=== PATIENT | male | born 2005 | race Two or more races ===

== ENCOUNTER 2025-06-03 17:11 | Emergency (ER) | payer OTHER ==
[~2025-06-03] VITALS: Ht 172.7 cm; Wt 77.3 kg
[2025-06-03 17:54] VITALS: BP 135/81; PULSE 80; RESP 16; TEMP 98.1; O2SAT 99
--- NOTE | 2025-06-03 18:41 | ED.PDOC ---
HPI Comments Patient presents to the ED for evaluation of his left ring finger. Patient has an avulsion injury to the left ring finger and knuckles. The patient reports that the injury occurred while peeling a potatoe. Bleeding has been controlled, and there are no other signs or symptoms of distress noted at this time. Chief Complaint: Laceration Time Seen by MD: 18:37 Reviewed Notes: Nurses Notes, Medications, Allergies Information Source: Patient Mode of Arrival: Ambulatory Complexity: Complex Laceration Length (cm): 3 Skin Type: Avulsion Past Medical History PAST MEDICAL HISTORY: Denies Surgical History: Denies all surgeries Family History Family History: Reviewed,noncontributory to illness Constitutional: denies: chills, diaphoresis, fatigue, fever, malaise, sweats, weakness, others EENTM: denies: blurred vision, double vision, ear bleeding, ear discharge, ear drainage, ear pain, ear ringing, eye pain, eye redness, hearing loss, mouth pain, mouth swelling, nasal discharge, nose bleeding, nose congestion, nose pain, photophobia, tearing, throat pain, throat swelling, voice changes, others Respiratory: denies: cough, hemoptysis, orthopnea, SOB at rest, shortness of breath, SOB with excertion, stridor, wheezing, others Cardiovascular: denies: chest pain, dizzy spells, diaphoresis, Dyspnea on exertion, edema, irregular heart beat, left arm pain, lightheadedness, palpitations, PND, syncope, others Gastrointestinal: denies: abdomen distended, abdominal pain, blood streaked bowels, constipated, diarrhea, dysphagia, difficulty swallowing, hematemesis, melena, nausea, poor appetite, poor fluid intake, rectal bleeding, rectal pain, vomiting, others Genitourinary: denies: burning, dysuria, flank pain, frequency, hematuria, incontinence, penile discharge, penile sore, pain, testicle pain, testicle swelling, urgency, others Neurological: denies: dizziness, fainting, headache, left sided numbness, left sided weakness, numbness, paresthesia, pre-existing deficit, right sided numbness, right sided weakness, seizure, speech problems, tingling, tremors, weakness, others Musculoskeletal: denies: back pain, gout, joint pain, joint swelling, muscle pain, muscle stiffness, neck pain, others Integumetry: reports: laceration (left ring finger); denies: bruises, change in color, change in hair/nails, dryness, lesions, lumps, rash, wounds, others Allergic/Immunocompromised: denies: Difficulty Healing, Frequent Infections, Hives, Itching, others Hematologic/Lymphatic: denies: anemia, blood clots, easy bleeding, easy bruising, swollen glands, others Endocrine: denies: excessive hunger, excessive sweating, excessive thirst, excessive urination, flushing, intolerance to cold, intolerance to heat, unexplained weight gain, unexplained weight loss, others Psychiatric: denies: anxiety, bipolar disorder, depression, hopeless, panic disorder, schizophrenia, sleepless, suicidal, others Physical Exam General Appearance: No Apparent Distress, Normal HEENT: Pharynx Normal Neck: Full Range of Motion, Non-Tender Respiratory: Lungs Clear, No Respiratory Distress, Normal Breath Sounds Cardiovascular: No Murmur, Normal Peripheral Pulses, Regular Rate/Rhythm Breast Exam: Deferred Gastrointestinal: Non Tender, Soft Genitalia: Deferred Pelvic: Deferred Rectal: Deferred Extremities: Normal capillary refill, Normal range of motion Musculoskeletal : Apperance: Normal Neurologic: Alert, No Motor Deficits, Normal Affect, Normal Mood, No Sensory Deficits Cerebellar Function: Normal Reflexes: Normal Skin: Dry, Lacerations (3 cm avulsion laceration over knuckle with missing a good portion of skin. Bleeding controlled), Normal Color, Warm Lymphatic: No Adenopathy Was a procedure done? Was a procedure done?: Yes Sedation Sedation?: No Informed consent obtained: Yes Laceration Repair : Location left ring finger Length 3 Anesthetic: Lidocaine, Digital nerve block Laceration Repair Prep: Saline, by Irrigation Laceration Repair Wound Comple: epidermis/dermis repair Laceration Repair: Number of sutures (7) Informed consent obtained: Yes Risks, benefits, and alternati: Yes Notes Patient tolerated well minimal blood loss CSM intact Differential diagnosis Generic Laceration: Hematoma, Retained Foriegn Body, Neurovascular Injury, Tendon Injury, Avulsion X-Ray, Labs, Meds, VS Vital Signs Date Time Temp Pulse Resp B/P (MAP) Pulse Ox O2 Delivery O2 Flow Rate FiO2 06/03/25 17:54 98.1 80 16 135/81 (99) 99 98.1 X-Ray, Labs, Meds, VS Comment . See procedure note follow up with your PCP in 2-3 days for re-evaluation. Script prophylactic antibiotics. Take medication as prescribed side effects discussed. ER return precautions given patient indicates understanding agrees Time of 1ST Reevaluation: 18:41 Reevaluation 1ST: Unchanged Time of 2ND Reevaluation: 19:39 Reevaluation 2ND: Improved Patient Education/Counseling: Diagnosis, Treatment, Prognosis, Need For Follow Up Family Education/Counseling: Diagnosis, Treatment, Prognosis, Need For Follow Up Departure 1 Departure Time of Disposition: 19:39 Impression: Primary Impression: Avulsion of finger Qualified Codes: S61.209A - Unspecified open wound of unspecified finger without damage to nail, initial encounter Disposition: HOME / SELF CARE / HOMELESS Condition: Stable e-Prescriptions Amoxicillin & Pot Clavulanate (AUGMENTIN TABLET) 875 Mg Tb 875 MG PO BID for 7 Days, #14 TAB Prov: VIRGEN JACOBS 06/03/25 Discharged With: Relative (Father) Critical Care Note Critical Care Time?: No Stability Stability form required: No VIRGEN JACOBS Jun 03, 2025 18:41
[2025-06-03] MEDS ORDERED: AUG875T PO (19:41)
== END 2025-06-03 20:11 | disposition home or self-care (01) ==
LOC: ER 17:11
DX: S61.305A Unspecified open wound of left ring finger with damage to nail, initial encounter (principal); W26.9XXA Contact with unspecified sharp object(s), initial encounter; Y93.89 Activity, other specified; Y92.89 Other specified places as the place of occurrence of the external cause; Y99.8 Other external cause status
CPT/HCPCS: 12002

== ENCOUNTER 2025-06-10 02:27 | Emergency (ER) | payer OTHER ==
[~2025-06-10] VITALS: Ht 172.7 cm; Wt 72.7 kg
[~2025-06-10 02:27] MED LIST: AUG875T PO
[2025-06-10 02:40] VITALS: BP 116/74; PULSE 68; RESP 20; TEMP 98.6; O2SAT 98
--- NOTE | 2025-06-10 02:59 | ED.PDOC ---
History of Present Illness HPI Comments 19 year old male presents to the ED for the c/c of Right Sided Testicle pain w/ associated Cramping Sensation. Pt states that his pain started at approx 0100 this am with no alleviating factors at this time. Pt states that he felt a "mass" on his right testicle, and notes he was unable to find the same mass on his left testicle. Pt denies any ABD pain, N/V/D or Dysuria at this time. Time Seen by MD: 02:55 Reviewed Notes: Nurses Notes, Medications, Allergies Allergies: Coded Allergies: NO KNOWN ALLERGIES (Unverified , 06/10/25) Home Meds Active Scripts Amoxicillin & Pot Clavulanate (AUGMENTIN TABLET) 875 Mg Tb, 875 MG PO BID for 7 Days, #14 TAB Prov:VIRGEN JACOBS MICHAEL 06/03/25 Information Source: Patient Mode of Arrival: Ambulatory Severity: Moderate Timing: Hours Duration: Since onset, Hours Prehospital treatment: None Past Medical History PAST MEDICAL HISTORY: Denies Surgical History: Denies all surgeries Family History Family History: Reviewed,noncontributory to illness Social History Smoker: Non-Smoker Alcohol: Denies ETOH Use Drugs: Denies Drug Use Lives In: Home Constitutional: denies: chills, diaphoresis, fatigue, fever, malaise, sweats, weakness, others EENTM: denies: blurred vision, double vision, ear bleeding, ear discharge, ear drainage, ear pain, ear ringing, eye pain, eye redness, hearing loss, mouth pain, mouth swelling, nasal discharge, nose bleeding, nose congestion, nose pain, photophobia, tearing, throat pain, throat swelling, voice changes, others Respiratory: denies: cough, hemoptysis, orthopnea, SOB at rest, shortness of breath, SOB with excertion, stridor, wheezing, others Cardiovascular: denies: chest pain, dizzy spells, diaphoresis, Dyspnea on exertion, edema, irregular heart beat, left arm pain, lightheadedness, palpitations, PND, syncope, others Gastrointestinal: denies: abdomen distended, abdominal pain, blood streaked bowels, constipated, diarrhea, dysphagia, difficulty swallowing, hematemesis, melena, nausea, poor appetite, poor fluid intake, rectal bleeding, rectal pain, vomiting, others Genitourinary: reports: testicle pain; denies: burning, dysuria, flank pain, frequency, hematuria, incontinence, penile discharge, penile sore, pain, testicle swelling, urgency, others Neurological: denies: dizziness, fainting, headache, left sided numbness, left sided weakness, numbness, paresthesia, pre-existing deficit, right sided numbness, right sided weakness, seizure, speech problems, tingling, tremors, weakness, others Musculoskeletal: denies: back pain, gout, joint pain, joint swelling, muscle pain, muscle stiffness, neck pain, others Integumetry: denies: bruises, change in color, change in hair/nails, dryness, laceration, lesions, lumps, rash, wounds, others Hematologic/Lymphatic: denies: anemia, blood clots, easy bleeding, easy bruising, swollen glands, others Endocrine: denies: excessive hunger, excessive sweating, excessive thirst, excessive urination, flushing, intolerance to cold, intolerance to heat, unexplained weight gain, unexplained weight loss, others Psychiatric: denies: anxiety, bipolar disorder, depression, hopeless, panic disorder, schizophrenia, sleepless, suicidal, others All Other Systems: Reviewed and Negative Physical Exam General Appearance: Mild Distress, Normal HEENT: Normal ENT Inspection, Pharynx Normal, TMs Normal Neck: Full Range of Motion, Non-Tender, Normal, Normal Inspection Respiratory: Chest Non-Tender, Lungs Clear, No Accessory Muscle Use, No Respiratory Distress, Normal Breath Sounds Cardiovascular: No Edema, No JVD, No Murmur, No Gallop, Normal Peripheral Pulses, Regular Rate/Rhythm Breast Exam: Deferred Gastrointestinal: Non Tender, No Pulsatile Mass, Normal Bowel Sounds, Soft Genitalia: Testicle (Right Tenderness) Pelvic: Deferred Rectal: Deferred Extremities: No calf tenderness, Normal capillary refill, Normal inspection, Normal range of motion, Non-tender, No pedal edema Musculoskeletal : Apperance: Normal Neurologic: Alert, No Motor Deficits, Normal Affect, Normal Mood, No Sensory Deficits Cerebellar Function: Normal Reflexes: Normal Skin: Dry, Normal Color, Warm Lymphatic: No Adenopathy Was a procedure done? Was a procedure done?: No Differential Dx Considerations may include: Differential diagnosis includes but is not limited to: ureteral colic / stone, testicular torsion, epididymitis, pyelonephritis, acute renal failure, musculo skeletal etiology and others X-Ray, Labs, Meds, VS Vital Signs Date Time Temp Pulse Resp B/P (MAP) Pulse Ox O2 Delivery O2 Flow Rate FiO2 06/10/25 02:40 98.6 68 20 116/74 (88) 98 98.6 Lab Test 06/10/25 02:45 Range/Units White Blood Count 6.1 4.4-10.8 10^3/uL Red Blood Count 5.18 4.5-5.90 10^6/uL Hemoglobin 16.2 13.5-17.5 g/dL Hematocrit 46.4 41.0-53.0 % Mean Corpuscular Volume 89.5 80.0-100.0 fL Mean Corpuscular Hemoglobin 31.4 28.0-32.0 pg Mean Corpuscular Hemoglobin Concent 35.0 32.0-36.0 g/dL Red Cell Distribution Width 13.0 11.8-14.3 % Platelet Count 208 140-450 10^3/uL Mean Platelet Volume 8.9 6.9-10.8 fL Neutrophils (%) (Auto) 48.2 37.0-80.0 % Lymphocytes (%) (Auto) 41.9 10.0-50.0 % Monocytes (%) (Auto) 8.2 0.0-12.0 % Eosinophils (%) (Auto) 1.4 0.0-7.0 % Basophils (%) (Auto) 0.3 0.0-2.0 % Neutrophils # (Auto) 3.0 1.6-8.6 10 ^3/uL Lymphocytes # (Auto) 2.6 0.4-5.4 10 ^3/uL Monocytes # (Auto) 0.5 0-1.3 10 ^3/uL Eosinophils # (Auto) 0.1 0-0.8 10 ^3/uL Basophils # (Auto) 0 0-0.2 10 ^3/uL Nucleated Red Blood Cells 0.3 % Urine Color Light-yellow Yellow Urine Clarity Clear Clear Urine pH 5.5 5.0-9.0 Urine Specific [place] 1.022 1.001-1.035 Urine Protein Negative Negative Urine Ketones Negative Negative Urine Blood Negative Negative /uL Urine Nitrite Negative Negative Urine Bilirubin Negative Negative Urine Urobilinogen Normal Negative mg/dL Urine Leukocyte Esterase Negative Negative /uL Urine RBC None seen 0 - 3 /hpf Urine Microscopic WBC < 1 0-3 /HPF Urine Squamous Epithelial Cells None seen <5 /hpf Urine Bacteria Few H None Seen /hpf Urine Sperm Present None Seen /hpf Urine Glucose Normal Normal mg/dL Sodium Level 142 136-145 mmol/L Potassium Level 3.8 3.5-5.1 mmol/L Chloride Level 105 98-107 mmol/L Carbon Dioxide Level 28 20-31 mmol/L Anion Gap 9 5-15 Blood Urea Nitrogen 14 9-23 mg/dL Creatinine 0.93 0.700-1.30 mg/dL Glomerular Filtration Rate Calc 120 >90 mL/min BUN/Creatinine Ratio 15.1 10.0-20.0 Serum Glucose 80 74-106 mg/dL Calcium Level 9.1 8.7-10.4 mg/dL PATIENT: MATT WOOD ACCT: [id number] UNIT: [id number] : 2005 LOC: ER ROOM / BED: / AGE / SEX: 19 / M ADM STATUS: REG ER SERVICE 0231 ORDERING PHYSICIAN: GUZMAN ORTIZ MD PROCEDURE(s): TESUS - TESTICULAR ULTRASOUND REASON: testicle pain ORDER NUMBER(s): [id number], ACCESSION NUMBER(s): [id number] ULTRASOUND OF SCROTUM AND CONTENTS. INDICATION: testicle pain COMPARISON: None TECHNIQUE: Multiple real-time grayscale sonographic and color and duplex Doppler images of the scrotum and its contents were obtained. FINDINGS: The right testicle measures 4.1 x 3.1 x 2.4 cm. The left testicle measures 4.5 x 3.1 x 2.1 cm. Both testicles demonstrate homogeneous echotexture without evidence of focal lesions. The right epididymal head measures 11.4 mm. The left epididymal head measures 12.0 mm. Subsequent color and duplex Doppler interrogation of the testes demonstrated symmetric normal vascular flow to both testicles. No focal areas of hyperemia were seen. IMPRESSION: 1. No evidence of torsion, epididymitis, and/or orchitis. 2. Left hydrocele. Time of 1ST Reevaluation: 03:25 Reevaluation 1ST: Unchanged Patient Education/Counseling: Diagnosis, Treatment, Need For Follow Up Family Education/Counseling: No Family Present SEPSIS Sepsis Screen Physician Orders Testicular Ultrasound (06/10/25 02:31) Vital Signs Date Time Temp Pulse Resp B/P (MAP) Pulse Ox O2 Delivery O2 Flow Rate FiO2 06/10/25 02:40 98.6 68 20 116/74 (88) 98 98.6 Laboratory Tests Test 06/10/25 02:45 White Blood Count 6.1 10^3/uL (4.4-10.8) Departure 1 Departure Time of Disposition: 05:30 Impression: Primary Impression: Left hydrocele Additional Impression: Right testicular pain Disposition: HOME / SELF CARE / HOMELESS Condition: Stable Discharged With: Self Critical Care Note Critical Care Time?: No Stability Stability form required: No Heart Score Heart Score: Heart Score Response (Comments) Value History N/A 0 EKG N/A 0 Age N/A 0 Risk Factors N/A 0 Troponin N/A 0 Total 0 I personally scribed for GUZMAN ORTIZ MD ([email or web address]) on 06/10/25 at 02:59. Electronically submitted by Chriss Martin ([email or web address]). I personally scribed for GUZMAN ORTIZ MD ([email or web address]) on 06/10/25 at 04:26. Electronically submitted by Chriss Martin ([email or web address]). GUZMAN ORTIZ MD Jun 10, 2025 02:59
[2025-06-10 03:16] LABS: Chloride 105 mmol/L (98-107); Potassium 3.8 mmol/L (3.5-5.1); Sodium 142 mmol/L (136-145)
[2025-06-10 03:17] LABS: Anion Gap 9 (5-15); Carbon Dioxide 28 mmol/L (20-31); Hematocrit 46.4 % (41.0-53.0); Hemoglobin 16.2 g/dL (13.5-17.5); Mean Corpuscular Hemoglobin 31.4 pg (28.0-32.0); Mean Corpuscular Volume 89.5 fL (80.0-100.0); Nucleated Red Blood Cells % 0.3 %
[2025-06-10 03:18] LABS: Calcium 9.1 mg/dL (8.7-10.4)
[2025-06-10 03:22] LABS: Glucose 80 mg/dL (74-106)
[2025-06-10 03:23] LABS: BUN/Creatinine Ratio 15.1 (10.0-20.0); Blood Urea Nitrogen 14 mg/dL (9-23)
[2025-06-10 04:19] LABS: Urine Protein, UAD Negative (Negative)
--- NOTE | 2025-06-10 04:24 | DVH ---
ULTRASOUND OF SCROTUM AND CONTENTS. INDICATION: testicle pain COMPARISON: None TECHNIQUE: Multiple real-time grayscale sonographic and color and duplex Doppler images of the scrotu m and its contents were obtained. FINDINGS: The right testicle measures 4.1 x 3.1 x 2.4 cm. The left testicle measures 4.5 x 3.1 x 2.1 cm. Both testicles demonstrate homogeneous echotexture without evidence of focal lesions. The right epididymal head measures 11.4 mm. The left epididymal head measures 12.0 mm. Subsequent color and duplex Doppler interrogation of the testes demonstrated symmetric normal vascula r flow to both testicles. No focal areas of hyperemia were seen. IMPRESSION: 1. No evidence of torsion, epididymitis, and/or orchitis. 2. Left hydrocele.
== END 2025-06-10 05:00 | disposition home or self-care (01) ==
LOC: ER 02:27
DX: N43.3 Hydrocele, unspecified (principal); N50.811 Right testicular pain; Z79.899 Other long term (current) drug therapy
CPT/HCPCS: 36415; 76870; 80048; 81001; 85025

== ENCOUNTER 2025-06-17 18:11 | Emergency (ER) | payer OTHER ==
[~2025-06-17] VITALS: Ht 172.7 cm; Wt 73.0 kg
--- NOTE | 2025-06-17 18:39 | ED.PDOC ---
History of Present Illness(SKN HPI Comments PT REPORTS WOUND CHECK TO LEFT RING FINGER AFTER HAVING SUTURES PLACED X 2 WEEKS AGO. PATIENT REQUESTING TO HAVE SUTURES REMOVED AND FINGER LOOKED AT HE DOES NOTE SOME PAIN TO THE FINGER. DENIES NUMBNESS AND WEAKNESS AT THIS TIME. DENIES NEW INJURY. Chief Complaint: Wound Check Time Seen by MD: 18:22 History of Present Illness: Nurses Notes, Medications, Allergies Allergies: Coded Allergies: NO KNOWN ALLERGIES (Unverified , 06/10/25) Home Meds Discontinued Scripts Amoxicillin & Pot Clavulanate (AUGMENTIN TABLET) 875 Mg Tb, 875 MG PO BID for 7 Days, #14 TAB Prov:VIRGEN JACOBS [facility] [employer]EFITS COORDINATOR 06/03/25 Information Source: Patient Mode of Arrival: Ambulatory Past Medical History PAST MEDICAL HISTORY: Denies Surgical History: Denies all surgeries Family History Family History: Reviewed,noncontributory to illness Social History Smoker: Non-Smoker Alcohol: Denies ETOH Use Drugs: Denies Drug Use Lives In: Home Constitutional: denies: chills, diaphoresis, fatigue, fever, malaise, sweats, weakness, others EENTM: denies: blurred vision, double vision, ear bleeding, ear discharge, ear drainage, ear pain, ear ringing, eye pain, eye redness, hearing loss, mouth pain, mouth swelling, nasal discharge, nose bleeding, nose congestion, nose pain, photophobia, tearing, throat pain, throat swelling, voice changes, others Respiratory: denies: cough, hemoptysis, orthopnea, SOB at rest, shortness of breath, SOB with excertion, stridor, wheezing, others Cardiovascular: denies: chest pain, dizzy spells, diaphoresis, Dyspnea on exertion, edema, irregular heart beat, left arm pain, lightheadedness, palpitations, PND, syncope, others Gastrointestinal: denies: abdomen distended, abdominal pain, blood streaked bowels, constipated, diarrhea, dysphagia, difficulty swallowing, hematemesis, melena, nausea, poor appetite, poor fluid intake, rectal bleeding, rectal pain, vomiting, others Genitourinary: denies: burning, dysuria, flank pain, frequency, hematuria, incontinence, penile discharge, penile sore, pain, testicle pain, testicle swelling, urgency, others Neurological: denies: dizziness, fainting, headache, left sided numbness, left sided weakness, numbness, paresthesia, pre-existing deficit, right sided numbness, right sided weakness, seizure, speech problems, tingling, tremors, weakness, others Musculoskeletal: denies: back pain, gout, joint pain, joint swelling, muscle pain, muscle stiffness, neck pain, others Integumetry: reports: wounds; denies: bruises, change in color, change in hair/nails, dryness, laceration, lesions, lumps, rash, others Allergic/Immunocompromised: denies: Difficulty Healing, Frequent Infections, Hives, Itching, others Hematologic/Lymphatic: denies: anemia, blood clots, easy bleeding, easy bruising, swollen glands, others Psychiatric: denies: anxiety, bipolar disorder, depression, hopeless, panic disorder, schizophrenia, sleepless, suicidal, others Physical Exam General Appearance: No Apparent Distress, Normal HEENT: Pharynx Normal Neck: Full Range of Motion Respiratory: Lungs Clear, No Respiratory Distress, Normal Breath Sounds Cardiovascular: No Murmur, Normal Peripheral Pulses, Regular Rate/Rhythm Breast Exam: Deferred Gastrointestinal: Non Tender, Soft Genitalia: Deferred Pelvic: Deferred Rectal: Deferred Extremities: Normal capillary refill, Normal range of motion Musculoskeletal : Apperance: Normal Neurologic: Alert, No Motor Deficits, Normal Affect, Normal Mood, No Sensory Deficits Cerebellar Function: Normal Reflexes: Normal Skin: Dry, Normal Color, Warm Lymphatic: No Adenopathy Was a procedure done? Was a procedure done?: Yes Sedation Sedation?: No Informed consent obtained: Yes Other Procedure Procedure REMOVAL OF SUTURES Indication GREATER THAN 10 DAYS HEALED Anesthetic NONE Prep NONE Success NINE SUTURES REMOVED INTACT. STERI-STRIPS APPLIED NO SIGNS AND SYMPTOMS OF INFECTION PATIENT TOLERATED WELL WITH NO BLOOD LOSS Informed consent obtained: Yes Risks, benefits, and alternati: Yes Differential Diagnosis (INTG) Differential Diagnosis: Cellulitis Differential Diagnosis: Abscess X-Ray, Labs, Meds, VS Vital Signs Date Time Temp Pulse Resp B/P (MAP) Pulse Ox O2 Delivery O2 Flow Rate FiO2 06/17/25 20:14 98.2 76 16 128/71 (90) 99 98.2 06/17/25 20:14 76 16 06/17/25 18:11 97.5 67 16 104/65 99 97.5 X-Ray, Labs, Meds, VS Comment HAND X-RAY SHOWS NO CHANGES WITHOUT FRACTURES OSSEOUS LESIONS OR SUBLUXATIONS. SUTURES REMOVED PATIENT TOLERATED WELL STERI-STRIPS APPLIED. EDUCATED PATIENT ON AFTERCARE ON STERI-STRIPS. ADVISED TO FOLLOW BACK UP IN THE ER FOR ANY CHANGES OR CONCERNS PATIENT INDICATED UNDERSTANDING AGREES WITH DISCHARGE PLAN OF CARE. Time of 1ST Reevaluation: 18:39 Reevaluation 1ST: Unchanged Time of 2ND Reevaluation: 20:03 Reevaluation 2ND: Improved Patient Education/Counseling: Diagnosis, Treatment, Prognosis, Need For Follow Up Family Education/Counseling: Diagnosis, Treatment, Prognosis, Need For Follow Up SEPSIS Sepsis Screen Date sepsis recognized/suspect: Jun 17, 2025 Time Sepsis recognized/suspect: 1810 Recent Procedure: No On Antibiotic Therapy: No Respiratory Rate >20: No Heart Rate >90: No Temp<36 C (96.8 F) or >38.3 C: No SBP <90 or MAP <65 mmHG: No New Acute Mental Status Change: No Is the patient on CPAP, BIPAP,: No Physician Orders L Hand 3v Xray (06/17/25 19:01) Vital Signs Date Time Temp Pulse Resp B/P (MAP) Pulse Ox O2 Delivery O2 Flow Rate FiO2 06/17/25 20:14 98.2 76 16 128/71 (90) 99 98.2 06/17/25 20:14 76 16 06/17/25 18:11 97.5 67 16 104/65 99 97.5 Departure 1 Departure Time of Disposition: 20:04 Impression: Primary Impression: Avulsion of finger Qualified Codes: S61.209A - Unspecified open wound of unspecified finger without damage to nail, initial encounter Additional Impression: Encounter for removal of sutures Disposition: 01 HOME / SELF CARE / HOMELESS Condition: Stable Discharged With: Self Critical Care Note Critical Care Time?: No Stability Stability form required: VIRGEN Zurita Jun 17, 2025 18:39
--- NOTE | 2025-06-17 20:01 | DVH ---
EXAM: XY L HAND 3V XRAY REASON FOR EXAM: 2nd digit injury/pain TECHNIQUE: PA, lateral, and oblique views of the left hand are submitted for review. COMPARISON: None FINDINGS: The bones demonstrate normal mineralization. There is no acute fracture or dislocation. The re is no retained radiopaque foreign body. There is mild soft tissue swelling of the dorsal medial as pect of the 4th proximal interphalangeal joint. IMPRESSION: No acute fracture or dislocation.
[2025-06-17 20:14] VITALS: BP 128/71; PULSE 76; RESP 16; TEMP 98.2; O2SAT 99
== END 2025-06-17 20:21 | disposition home or self-care (01) ==
LOC: ER 18:11
DX: S61.215D Laceration without foreign body of left ring finger without damage to nail, subsequent encounter (principal); Z79.899 Other long term (current) drug therapy; X58.XXXD Exposure to other specified factors, subsequent encounter
CPT/HCPCS: 73130